=== PATIENT | female | born 1935 | race Two or more races ===

== ENCOUNTER → 2020-08-02 10:25 | Outpatient (BNV) | payer MEDICARE, MEDICAID, SELFPAY | PROVIDERS: PCP Family Medicine; Visit Provider Internal Medicine Medical Oncology | DX: C83.30 Diffuse large B-cell lymphoma, unspecified site (principal) | CPT/HCPCS: 99213; 99214 ==

== ENCOUNTER 2020-08-13 08:51 | Day surgery (SDC) | payer MEDICARE, OTHER, SELFPAY ==
--- NOTE | 2020-08-13 | IR_ITS ---
EXAMINATION: TUNNELED CATHETER REMOVAL CLINICAL INFORMATION: Port-A-Cath no longer needed COMPARISON: None TECHNIQUE/FINDINGS: Procedure and risks and benefits including bleeding and infection were discussed with the patient and informed consent was obtained. All elements of maximal sterile barrier technique followed including use of cap, mask, sterile gown, sterile gloves, a sterile full body drape and hand hygiene. Also followed skin preparation with 2% chlorhexidine for cutaneous antisepsis, and sterile ultrasound preparation with sterile gel and probe cover when applicable. The right upper chest over the port was prepped and draped in the usual sterile fashion. The skin and soft tissues were anesthetized with 1% lidocaine plain. A small incision was made. Using blunt dissection, the port and catheter were dissected from the surrounding soft tissues and removed. The skin incision was closed using 3 30 absorbable interrupted sutures followed followed by a running absorbable 4-0 subcuticular suture. Total sedation time was 19 minutes. The patient received Versed 0.5 mg and fentanyl 25 mcg. 2 saved fluoroscopic images. Fluoroscopy time 0.1 minute. IR/IR cvc remove tunnel w prt/senior bookkeeper IMPRESSION: Right internal jugular Port-A-Cath removal.
[2020-08-13 10:32] LABS: Glucose, Whole Blood 211 mg/dL (60-115)
[2020-08-13 10:47] LABS: Prothrombin Time 11.9 SEC (10.8-13.0)
[2020-08-13 10:49] LABS: Partial Thromboplastin Time 31.8 SEC (24.1-38.0)
[2020-08-13 12:20] VITALS: BP 158/59; PULSE 71; RESP 16; TEMP 36.8; O2SAT 95
--- NOTE | 2020-08-13 12:23 | HO.RADPN ---
RADIOLOGY Narrative Narrative: Right internal jugular portacath removed.
[2020-08-13] MEDS: Lidocaine HCl 1 % MPF 5 ML VIAL 10 ML SUBCUT (12:27)
[2020-08-13 12:35] VITALS: BP 156/63; PULSE 69; RESP 16; O2SAT 93
[2020-08-13 13:05] VITALS: BP 160/57; PULSE 82; RESP 16; O2SAT 97
[2020-08-13 13:20] VITALS: BP 144/59; PULSE 71; RESP 18; TEMP 36.4; O2SAT 95
== END 2020-08-13 13:49 | disposition home or self-care (01) ==
PROVIDERS: Radiology Diagnostic Radiology; PCP Family Medicine; Visit Provider Internal Medicine Medical Oncology
PROC: (CPT 36590; principal; 2020-08-13 10:30)
DX: Z45.2 Encounter for adjustment and management of vascular access device (principal); C83.30 Diffuse large B-cell lymphoma, unspecified site; E11.9 Type 2 diabetes mellitus without complications; I11.0 Hypertensive heart disease with heart failure; I50.9 Heart failure, unspecified; Z79.84 Long term (current) use of oral hypoglycemic drugs; Z79.899 Other long term (current) drug therapy
CPT/HCPCS: 36415; 36590; 82947; 85610; 85730; 99152; J2250; J3010

== ENCOUNTER 2020-08-28 10:14 | Outpatient (REF) | payer MEDICARE, OTHER, SELFPAY ==
--- NOTE | 2020-08-28 10:17 | CT_ITS ---
EXAMINATION: CT CHEST WITHOUT CONTRAST CLINICAL INFORMATION: Lymphoma. Follow-up pulmonary nodules and pleural effusion. COMPARISON: Previous chest CT scans March 2020 and April 2019 TECHNIQUE: Multidetector volumetric CT imaging of the chest was done. Axial MIP volume rendering provided. Sagittal and coronal reformatted images were obtained. This CT examination was performed using dose optimization techniques as appropriate, variously including the following: *Automated exposure control *Adjustment of mA and/or kV according to patient size (this includes techniques or standardized protocols for targeted exams where dose is matched to indication/reason for exam; i.e. extremities or head) *Use of iterative reconstruction technique DLP: 147 mGy-cm FINDINGS: LUNGS: There is a 4 mm right upper lobe nodule axial image 123 series 5. There is a 3 x 4 mm peripheral or subpleural right upper lobe nodule axial image 163 series 5. There is a 4 mm peripheral or subpleural right lower lobe nodule axial image 207 series 5. There is a 3 mm peripheral or subpleural nodule adjacent to the minor fissure axial image 233 series 5. There is a 5 x 10 mm peripheral or subpleural right lower lobe nodule axial image 384 series 5. There is a 3 mm peripheral or subpleural superior segment left lower lobe nodule axial image 239 series 5. There is a 3 mm peripheral or subpleural calcified left lower lobe nodule axial image 256 series 5. Pulmonary nodules are stable from previous exam. There is question of a 2 mm left lower lobe nodule axial image 370 series 5. This is difficult to compare with previous exam due to motion artifact but is stable from older exam from 2019.. The lungs are otherwise clear. No new pulmonary nodule is seen. MEDIASTINUM: There are small mediastinal lymph nodes that are stable. No enlarged lymph nodes are seen. The heart is upper normal in size. There is mild coronary artery calcification. There is no pericardial effusion. PLEURA: There is no pleural effusion. No pleural mass or thickening. AXILLA: No chest wall mass or enlarged axillary lymph nodes are seen. UPPER ABDOMEN: Unremarkable OSSEOUS STRUCTURES: There are degenerative changes of the spine. CT/CT chest wo con IMPRESSION: Stable pulmonary nodules, largest measuring 5 x 10 mm in the right lower lobe. Small mediastinal lymph nodes. No enlarged lymph nodes seen. No pleural effusion.
== END 2020-08-28 10:15 | disposition home or self-care (01) ==
LOC: HO.CT 10:14
PROVIDERS: Visit Provider Internal Medicine Medical Oncology
DX: C85.90 Non-Hodgkin lymphoma, unspecified, unspecified site (principal)
CPT/HCPCS: 71250

== ENCOUNTER 2020-12-31 09:08 | Outpatient (REF) | payer MEDICARE, MEDICAID, SELFPAY ==
--- NOTE | ~2020-12-31 | MM_ITS ---
EXAMINATION: MM SCREENING DIGITAL BREAST TOMOSYNTHESIS, BILATERAL CLINICAL INFORMATION: Screening. Asymptomatic. The lifetime risk of breast cancer based on the Tyrer-Cuzick Model is 1%. COMPARISON: Mammography: 11/25/2019, 12/17/2018, 08/29/2017 TECHNIQUE: Digital breast tomosynthesis is performed in both the craniocaudal and mediolateral oblique views along with computer-aided detection (CAD). Synthesized 2D images are generated from the tomosynthesis. FINDINGS: The breasts are almost entirely fatty (ACR BI-RADS breast composition Category a). There are no significant masses, abnormal calcifications, or other abnormalities. Background stromal markings are similar to prior studies. The axilla and skin contours are unremarkable. No significant changes. MM/MM tomosynthesis screening BI IMPRESSION: No mammographic evidence of malignancy. ASSESSMENT: BI-RADS 1: Negative RECOMMENDATION: Routine annual mammography screening. This patient's information was entered into a reminder system with a target due date for their next mammogram.
== END 2020-12-31 09:09 | disposition home or self-care (01) ==
LOC: HO.MAMMO 09:08
PROVIDERS: Visit Provider Internal Medicine Medical Oncology
DX: Z12.31 Encounter for screening mammogram for malignant neoplasm of breast (principal)
CPT/HCPCS: 77063; 77067

== ENCOUNTER 2021-02-21 10:27 | Outpatient (REF) | payer MEDICARE, OTHER, SELFPAY ==
--- NOTE | ~2021-02-21 | XR_ITS ---
EXAMINATION: XR SHOULDER, RIGHT CLINICAL INFORMATION: Pain right shoulder. COMPARISON: None TECHNIQUE: AP external rotation, Grashey, scapular Y, and axillary views of the right shoulder. FINDINGS: Is loss of right glenohumeral and AC joint space with no visible acute fracture dislocation. There is moderate hypertrophic changes right AC joint. The soft tissues unremarkable. XR/XR shoulder RT min 2V IMPRESSION: No acute fracture or dislocation. Degenerative disc changes collateral joint and AC joint with moderate hypertrophic spurring right AC joint.
== END 2021-02-21 10:28 | disposition home or self-care (01) ==
LOC: HO.HOSX 10:27
PROVIDERS: Visit Provider Orthopaedic Surgery
DX: M25.511 Pain in right shoulder (principal); G89.29 Other chronic pain
CPT/HCPCS: 73030; 99202

== ENCOUNTER 2021-04-02 12:54 | Outpatient (REF) | payer MEDICARE, OTHER, SELFPAY ==
--- NOTE | ~2021-04-02 | CT_ITS ---
EXAMINATION: CT ABDOMEN AND PELVIS WITHOUT CONTRAST CLINICAL INFORMATION: Lymphoma COMPARISON: Previous head CT September 2019 TECHNIQUE: Multidetector volumetric imaging was performed from the superior aspect of the liver through the pubic symphysis. Sagittal and coronal reformatted images were obtained on the technologist's workstation. This CT examination was performed using dose optimization techniques as appropriate, variously including the following: *Automated exposure control *Adjustment of mA and/or kV according to patient size (this includes techniques or standardized protocols for targeted exams where dose is matched to indication/reason for exam; i.e. extremities or head) *Use of iterative reconstruction technique DLP: 448 mGy-cm FINDINGS: LIVER, GALLBLADDER, AND BILIARY TREE: The liver is normal in size, shape, and attenuation. No focal hepatic lesion or biliary ductal dilatation is present. The gallbladder is unremarkable with no evidence of radiopaque gallstones, gallbladder wall thickening, or obvious pericholecystic inflammatory changes. PANCREAS: Unremarkable. SPLEEN: Unremarkable. ADRENAL GLANDS: Unremarkable. KIDNEYS AND URETERS: The kidneys are normal in size, shape, and attenuation. No hydronephrosis, hydroureter, or calculi seen. No perinephric stranding. BLADDER: Unremarkable. GASTROINTESTINAL TRACT: There is diverticulosis of the colon. No evidence of diverticulitis is seen The small and large bowel are otherwise unremarkable. The appendix is unremarkable. ABDOMINAL WALL: There is an umbilical hernia containing fat. LYMPH NODES: There are no enlarged lymph nodes. There is no ascites. VASCULAR: There is evidence of atherosclerotic disease. No aneurysm is seen. PELVIC VISCERA: Unremarkable. OSSEOUS STRUCTURES: There is curvature of the lumbar spine to the right and degenerative changes. There is a lucent lesion in the L2 vertebral body that is stable and did not demonstrate increased uptake on PET CT scan probably a hemangioma. CT/CT abdomen pelvis wo con IMPRESSION: Diverticulosis of the colon. Atherosclerotic disease. Otherwise unremarkable exam.
--- NOTE | ~2021-04-02 | CT_ITS ---
EXAMINATION: CT CHEST WITHOUT CONTRAST CLINICAL INFORMATION: Lymphoma. Follow-up pleural effusion and lung nodule COMPARISON: Previous chest CT scans most recent August 2020 TECHNIQUE: Multidetector volumetric CT imaging of the chest was done. Axial MIP volume rendering provided. Sagittal and coronal reformatted images were obtained. This CT examination was performed using dose optimization techniques as appropriate, variously including the following: *Automated exposure control *Adjustment of mA and/or kV according to patient size (this includes techniques or standardized protocols for targeted exams where dose is matched to indication/reason for exam; i.e. extremities or head) *Use of iterative reconstruction technique DLP: 183 mGy-cm FINDINGS: LUNGS: There are pulmonary nodules that are stable. Largest pulmonary nodule is a 5 x 10 mm peripheral or subpleural right lower lobe nodule axial image 388 series 7. No new pulmonary nodule is seen. MEDIASTINUM: There are small mediastinal lymph nodes. No enlarged lymph nodes are seen. There is evidence of atherosclerotic disease. There is mild coronary artery calcification. PLEURA: There is no pleural effusion. No pleural mass or thickening. AXILLA: No lymphadenopathy. OSSEOUS STRUCTURES: There are degenerative changes of the spine. CT/CT chest wo con IMPRESSION: Stable pulmonary nodules, largest in the right lower lobe. No pleural effusion.
[2021-04-02 14:08] LABS: MANUAL DIFF FLAG NO
[2021-04-02 14:19] LABS: Basophils Percent Auto 0.4 % (0-2); Eosinophils Absolute Auto 0.2 X10*3/uL (0.0-0.4); Eosinophils Percent Auto 2.2 % (0-4); Hematocrit 38.5 % (37-47); Hemoglobin 12.1 g/dl (12.0-16.0); Imm Gran Abs Auto 0.04 X10*3/uL (0.00-0.03); Imm Gran Pct Auto 0.5 % (0.0-0.4); Lymphocytes Absolute Auto 2.2 X10*3/uL (1.2-4.9); Lymphocytes Percent Auto 26.8 % (20-40); Mean Corpuscular HGB Conc 31.4 g/dl (31.0-35.0); Mean Corpuscular Hemoglobin 26.5 pg (27.0-33.0); Mean Corpuscular Volume 84.4 fL (80-98); Mean Platelet Volume 11.4 fL (9.4-12.3); Monocytes Absolute Auto 0.4 X10*3/uL (0.1-1.2); Monocytes Percent Auto 4.7 % (2-11); Neutrophils Absolute Auto 5.4 X10*3/uL (2.0-8.3); Neutrophils Percent Auto 65.4 % (45-73); Platelet Count 244 X10*3/uL (160-400); Red Blood Count 4.56 X10*6/uL (4.20-5.50); Red Cell Distribution Width 16.5 % (11.0-16.0); White Blood Count 8.3 X10*3/uL (4.8-10.8)
[2021-04-02 14:35] LABS: Alanine Aminotransferase 12 U/L (0-31); Alkaline Phosphatase 89 U/L (39-117); Anion Gap 16 (12-20); Aspartate Amino Transferase 11 U/L (5-31); Bilirubin Total 0.7 mg/dL (0.0-1.0); Blood Urea Nitrogen 21 mg/dL (9-16); Calcium 9.6 mg/dL (8.4-10.2); Carbon Dioxide 28 mmol/L (22-29); Chloride 101 mmol/L (96-108); Estimated Glomerular Filt Rate > 60; Glucose Random 134 mg/dL (60-115); Lactate Dehydrogenase 158 U/L (122-220); Potassium 4.1 mmol/L (3.3-5.1); Sodium 141 mmol/L (135-145); Total Protein 7.5 g/dL (6.5-8.0)
== END 2021-04-02 12:55 | disposition home or self-care (01) ==
LOC: HO.CT 12:54
PROVIDERS: PCP Family Medicine; Visit Provider Internal Medicine Medical Oncology
DX: C83.30 Diffuse large B-cell lymphoma, unspecified site (principal)
CPT/HCPCS: 36415; 71250; 74176; 80053; 83615; 85025

== ENCOUNTER 2022-01-01 13:47 | Outpatient (REF) | payer MEDICARE, SELFPAY ==
--- NOTE | ~2022-01-01 | MM_ITS ---
EXAMINATION: MM SCREENING DIGITAL BREAST TOMOSYNTHESIS, BILATERAL CLINICAL INFORMATION: Screening. Asymptomatic. The lifetime risk of breast cancer based on the Tyrer-Cuzick Model is 1%. COMPARISON: Mammography: 12/31/2020, 11/25/2019, 11/19/2018 TECHNIQUE: Digital breast tomosynthesis is performed in both the craniocaudal and mediolateral oblique views along with computer-aided detection (CAD). Synthesized 2D images are generated from the tomosynthesis. FINDINGS: The breasts are almost entirely fatty (ACR BI-RADS breast composition Category a). There are no significant masses, abnormal calcifications, or other abnormalities. The axilla and skin contours are unremarkable. MM/MM tomosynthesis screening BI IMPRESSION: No mammographic evidence of malignancy. ASSESSMENT: BI-RADS 1: Negative RECOMMENDATION: Routine annual mammography screening. This patient's information was entered into a reminder system with a target due date for their next mammogram.
== END 2022-01-01 13:48 | disposition home or self-care (01) ==
LOC: HO.MAMMO 13:47
PROVIDERS: PCP Family Medicine; Visit Provider Family Medicine
DX: Z12.31 Encounter for screening mammogram for malignant neoplasm of breast (principal)
CPT/HCPCS: 77063; 77067

== ENCOUNTER 2022-08-08 08:32 | Outpatient (REF) | payer MEDICARE, SELFPAY ==
--- NOTE | ~2022-08-08 | CT_ITS ---
EXAMINATION: CT ABDOMEN AND PELVIS WITHOUT IV CONTRAST CLINICAL INFORMATION: Diffuse large B-cell lymphoma. COMPARISON: CT chest and abdomen 04/02/2021. TECHNIQUE: 5 mm thin axial and reformatted 3 mm thin sagittal and coronal images of chest, abdomen and pelvis were obtained without IV contrast. DLP: 864 mGy-cm FINDINGS: CHEST: Lungs: There are bilateral pulmonary nodules the largest pulmonary nodule pleural-based right lower lobe measuring 1 cm on axial image 36/7. A second larger nodule left upper lobe measures 4 mm on axial image 171/8, also unchanged. No new nodules are visualized. No acute consolidation, mass or ground-glass density. Mediastinum: The heart size and the great vessels are normal caliber. There is no pericardial effusion. No abnormal lymph node seen. There is mild coronary artery calcifications present. The central trachea and the bronchi are widely patent. Thyroid lobes are symmetrical and normal. Pleura: There is no pleural effusion, thickening or calcification. Axilla: Unremarkable. The chest wall is unremarkable. Osseous structures: There is no aggressive lytic or sclerotic process. There is mild vacuum disc phenomena in mid and lower dorsal spine with spondylosis. ABDOMEN AND PELVIS: Liver, gallbladder and biliary tree: The liver is normal size, shape and contour. No focal lesions or intrahepatic ductal dilatation seen. The gallbladder is minimally distended and appears unremarkable. Spleen: Unremarkable. Pancreas: Unremarkable. Bilateral adrenal glands: Unremarkable. Kidneys and ureters: Both kidneys are normal size, shape and contour. There is a 3 mm nonobstructive radiopaque calculus lower pole right kidney. There is no hydronephrosis. There is no bilateral perinephric stranding. Lymphovascular structures: There is atherosclerotic calcification of abdominal aorta without aneurysmal dilatation. No abnormal size retroperitoneal or intraperitoneal lymph node seen. Abdominal wall: Unremarkable. GI tract: There is scattered colonic diverticulosis without mural thickening or diverticulitis. Visualized small bowel loops, ileocecal junction and appendix are normal caliber. No free air or free fluid seen. Pelvis: The uterus is anteverted with scattered calcifications. Urinary bladder: There is calcification along the posterior thickened bladder wall, similar to previous study. Osseous structures: There are degenerative disc changes L1-L2 and L5-S1 disc levels. CT/CT abdomen pelvis wo IV con IMPRESSION: Stable multiple pulmonary nodules. No abnormal mediastinal or axillary lymphadenopathy. Diffuse colonic diverticulosis without diverticulitis. Mild constipation. Degenerative disc changes L5-S1 disc level.
== END 2022-08-08 08:33 | disposition home or self-care (01) ==
LOC: HO.CT 08:32
PROVIDERS: PCP Registered Nurse; Visit Provider Internal Medicine Medical Oncology
DX: C83.30 Diffuse large B-cell lymphoma, unspecified site (principal)
CPT/HCPCS: 71250; 74176

== ENCOUNTER → 2022-12-17 11:28 | Outpatient (BNVA) | payer MEDICARE, MEDICAID, OTHER, SELFPAY | PROVIDERS: PCP Registered Nurse; Visit Provider Internal Medicine | DX: R19.5 Other fecal abnormalities (principal) | CPT/HCPCS: 99212 ==

== ENCOUNTER 2023-01-07 13:13 | Outpatient (REF) | payer MEDICARE, MEDICAID, SELFPAY ==
--- NOTE | ~2023-01-07 | MM_ITS ---
EXAMINATION: MM SCREENING DIGITAL BREAST TOMOSYNTHESIS, BILATERAL CLINICAL INFORMATION: Screening. Asymptomatic. Prior history diffuse B-cell lymphoma. COMPARISON: Mammography: 01/01/2022, 12/31/2020 TECHNIQUE: Digital breast tomosynthesis is performed in both the craniocaudal and mediolateral oblique views along with computer-aided detection (CAD). Synthesized 2D images are generated from the tomosynthesis. FINDINGS: The breasts are almost entirely fatty (ACR BI-RADS breast composition Category a). Background stromal markings are normal. No architectural abnormality or developing density. There are no significant masses, abnormal calcifications, or other abnormalities. The axilla are unremarkable. The skin contours are smooth. No skin thickening or coarsening Tim's ligaments. No significant changes. MM/MM tomosynthesis screening BI IMPRESSION: No mammographic evidence of malignancy. ASSESSMENT: BI-RADS 1: Negative RECOMMENDATION: Routine annual mammography screening. This patient's information was entered into a reminder system with a target due date for their next mammogram.
== END 2023-01-07 13:14 | disposition home or self-care (01) ==
LOC: HO.MAMMO 13:13
PROVIDERS: PCP Family Medicine; Visit Provider Family Medicine
DX: Z12.31 Encounter for screening mammogram for malignant neoplasm of breast (principal)
CPT/HCPCS: 77063; 77067

== ENCOUNTER 2023-02-05 09:38 | Day surgery (SDC) | payer MEDICARE, MEDICAID, SELFPAY ==
[2023-02-03 11:07] VITALS: BMI 37.0
--- NOTE | 2023-02-04 12:31 | P.CONAN_ITS ---
Documented by User: Carolyn Whitley NP 02/04/23 14:44 HPI - Anesthesia Eval Consult details Narrative: 87yo F for Colonoscopy Follows Dr Read for cardiology - CHF, NICMP, HTN, BBB. Last seen 12/23/22. Euvolemic/stable, no CP, palps, PND, orthopnea, or syncope. *Mutiple Med Allergies* PMFSH Active Problems Active Problems: All Active Problems (Updated 01/29/23 @ 15:40 by Kenrick Sheldon MD) Diffuse large B cell lymphoma (Acute) Positive fecal immunochemical test (Acute) Chronic periscapular pain on right side (Acute) Past Medical History Medical History Carpal tunnel syndrome on both sides Cataract Chronic periscapular pain on right side Congestive heart failure History of DVT (deep vein thrombosis) History of pleural effusion HTN (hypertension) Tendonitis Type 2 diabetes mellitus Family History Family History Daughter Uterine cancer Family/Other HTN (hypertension) Surgical History Surgical History (Updated 02/03/23 @ 11:03 by Ami Willis RN) H/O varicose vein stripping History of delivery History of removal of Port-a-Cath Hx of colonoscopy Social History Social History Household Members: Sp[facility] Are you a primary neonatal intensive care nurse to a significant other at home: No Do you presently have visiting nurse or other home services: No Alcohol intake: never Patient Tobacco Use Status: Never used Tobacco Are you DNR?: No Advance Directives: No Advance Directives Information Provided: Yes Nutrition Risks: No Nutritional Risk service: No Current occupational status: retired Meds Allergies Allergy/AdvReac Type Severity Reaction Status Date / Time Iodinated Contrast Media Allergy Severe PA Unverified 01/29/23 15:45 [IV CONTRAST] amlodipine [Amlodipine] Allergy Intermediate FACIAL Unverified 02/03/23 10:54 SWELLING levofloxacin [From LEVAQUIN] Allergy Intermediate INABILITY Unverified 02/03/23 10:54 TO MOVE LEGS, SEVERE PAIN TO LEGS/ANKLES atenolol [From Tenormin] Allergy Unknown CANNOT Unverified 01/29/23 15:45 TOLERATE atorvastatin [From Lipitor] Allergy Unknown cannot Verified 02/03/23 10:53 tolerate clonidine Allergy Unknown Unknown Verified 02/03/23 10:55 glimepiride [From Amaryl] Allergy Unknown CANNOT Unverified 01/29/23 15:45 TOLERTATE indapamide [From Lozol] Allergy Unknown CANNOT Unverified 01/29/23 15:45 TOLERATE lisinopril [Lisinopril] Allergy Unknown CANNOT Unverified 01/29/23 15:45 TOLERATE meloxicam [From Mobic] Allergy Unknown Unknown Verified 02/03/23 10:53 metformin [Metformin] Allergy Unknown CANNOT Unverified 01/29/23 15:45 TOLERATE naproxen [From Naprosyn] Allergy Unknown CANNOT Unverified 01/29/23 15:45 TOLERATE omeprazole [From Prilosec] Allergy Unknown CANNOT Unverified 01/29/23 15:45 TOLERATE pravastatin [Pravastatin] Allergy Unknown CANNOT Unverified 01/29/23 15:45 TOLERATE rosiglitazone [From Avandia] Allergy Unknown Unknown Verified 02/03/23 10:55 verapamil [Verapamil] Allergy Unknown CANNOT Unverified 01/29/23 15:45 TOLERATE rosuvastatin [From Crestor] AdvReac Unknown cannot Verified 02/03/23 10:55 tolerate Home Medications Medication Instructions Recorded Confirmed Last Taken Type acetaminophen 500 mg tablet 1 tab PO Q8H PRN fever 08/02/20 02/03/23 Unknown History aspirin 81 mg tablet,delayed 81 mg PO DAILY 08/02/20 02/03/23 Unknown History release chlorthalidone 25 mg tablet 1 tab PO QAM 08/02/20 02/03/23 Unknown History furosemide 20 mg tablet 20 mg PO DAILY 08/02/20 02/03/23 Unknown History glipizide 10 mg tablet 1 tab PO DAILY 08/02/20 02/03/23 Unknown History hydralazine 50 mg tablet 50 mg PO QID 08/02/20 02/03/23 Unknown History loratadine 10 mg tablet 10 mg PO DAILY PRN Itching 08/02/20 02/03/23 Unknown History metoprolol succinate 50 mg 1 tab PO BEDTIME 08/02/20 02/03/23 Unknown History tablet,extended release 24 hr nifedipine 30 mg tablet,extended 1 tab PO DAILY 08/02/20 02/03/23 Unknown History release 24 hr blood sugar diagnostic #10 ea 02/21/21 01/29/23 Unknown History lancets 26 gauge #100 ea 02/21/21 01/29/23 Unknown History metformin 500 mg tablet 500 mg PO DAILY 02/21/21 02/03/23 Unknown History triamcinolone acetonide 55 mcg 2 spray intranasal DAILY 02/21/21 01/29/23 Unknown History nasal spray aerosol metoprolol succinate 25 mg 10 mg PO DAILY 12/17/22 01/29/23 Unknown History tablet,extended release 24 hr Exam Exam Date and Time: February 04, 2023 1231 Height,Weight and Vital Signs: Height 4 ft 8 in Weight 74.843 kg Pertinent Lab Results Pertinent Lab Results: Laboratory Tests 01/29/23 01/29/23 15:36 15:36 WBC 8.0 Hgb 12.4 Hct 38.1 Plt Count 207 Sodium 139 Potassium 3.9 Chloride 104 Carbon Dioxide 24 BUN 26 H Creatinine 1.27 Narrative Narrative: ECHO 11/2022 Suboptimal views d/t patient body habitus Endocardium not well visualized therefore wall motion abn cannot be r/o LV size is normal Borderline LVH Overall HV sys function is low-normal with an EF between 50-55% Grade 1 DD with impaired relaxation filling pattern. LA pressure is normal LA size is normal RV systolic function is normal Trace AR Mild MR Mild pulmo htn Contrast recommended to better visualize LV Assessment and Plan Assessment Anesthesia Assessment: Chart Reviewed Documented by User: Zeina Silva MD 02/05/23 10:43 [facility] Past Medical History Medical History Carpal tunnel syndrome on both sides Cataract Chronic periscapular pain on right side Congestive heart failure History of DVT (deep vein thrombosis) History of pleural effusion HTN (hypertension) Tendonitis Type 2 diabetes mellitus Family History Family History Daughter Uterine cancer Family/Other HTN (hypertension) Family history of problems with anesthesia: No Surgical History Surgical History (Updated 02/03/23 @ 11:03 by Ami Willis RN) H/O varicose vein stripping History of delivery History of removal of Port-a-Cath Hx of colonoscopy History of Problems with Anesthesia: No Social History Social History Household Members: Spouse Housing: Condominium Are you a primary neonatal intensive care nurse to a significant other at home: No Do you presently have visiting nurse or other home services: No Alcohol intake: never Patient Tobacco Use Status: Never used Tobacco Are you DNR?: No Advance Directives: No Advance Directives Information Provided: Yes Nutrition Risks: No Nutritional Risk service: No Current occupational status: retired Meds Allergies Allergy/AdvReac Type Severity Reaction Status Date / Time Iodinated Contrast Media Allergy Severe PA Unverified 01/29/23 15:45 [IV CONTRAST] amlodipine [Amlodipine] Allergy Intermediate FACIAL Unverified 02/03/23 10:54 SWELLING levofloxacin [From LEVAQUIN] Allergy Intermediate INABILITY Unverified 02/03/23 10:54 TO MOVE LEGS, SEVERE PAIN TO LEGS/ANKLES atenolol [From Tenormin] Allergy Unknown CANNOT Unverified 01/29/23 15:45 TOLERATE atorvastatin [From Lipitor] Allergy Unknown cannot Verified 02/03/23 10:53 tolerate clonidine Allergy Unknown Unknown Verified 02/03/23 10:55 glimepiride [From Amaryl] Allergy Unknown CANNOT Unverified 01/29/23 15:45 TOLERTATE indapamide [From Lozol] Allergy Unknown CANNOT Unverified 01/29/23 15:45 TOLERATE lisinopril [Lisinopril] Allergy Unknown CANNOT Unverified 01/29/23 15:45 TOLERATE meloxicam [From Mobic] Allergy Unknown Unknown Verified 02/03/23 10:53 metformin [Metformin] Allergy Unknown CANNOT Unverified 01/29/23 15:45 TOLERATE naproxen [From Naprosyn] Allergy Unknown CANNOT Unverified 01/29/23 15:45 TOLERATE omeprazole [From Prilosec] Allergy Unknown CANNOT Unverified 01/29/23 15:45 TOLERATE pravastatin [Pravastatin] Allergy Unknown CANNOT Unverified 01/29/23 15:45 TOLERATE rosiglitazone [From Avandia] Allergy Unknown Unknown Verified 02/03/23 10:55 verapamil [Verapamil] Allergy Unknown CANNOT Unverified 01/29/23 15:45 TOLERATE rosuvastatin [From Crestor] AdvReac Unknown cannot Verified 02/03/23 10:55 tolerate Home Medications Medication Instructions Recorded Confirmed Last Taken Type acetaminophen 500 mg tablet 1 tab PO Q8H PRN fever 08/02/20 02/03/23 Unknown History aspirin 81 mg tablet,delayed 81 mg PO DAILY 08/02/20 02/03/23 Unknown History release chlorthalidone 25 mg tablet 1 tab PO QAM 08/02/20 02/03/23 Unknown History furosemide 20 mg tablet 20 mg PO DAILY 08/02/20 02/03/23 Unknown History glipizide 10 mg tablet 1 tab PO DAILY 08/02/20 02/03/23 Unknown History hydralazine 50 mg tablet 50 mg PO QID 08/02/20 02/03/23 Unknown History loratadine 10 mg tablet 10 mg PO DAILY PRN Itching 08/02/20 02/03/23 Unknown History metoprolol succinate 50 mg 1 tab PO BEDTIME 08/02/20 02/03/23 Unknown History tablet,extended release 24 hr nifedipine 30 mg tablet,extended 1 tab PO DAILY 08/02/20 02/03/23 Unknown Histo ry release 24 hr blood sugar diagnostic #10 ea 02/21/21 01/29/23 Unknown History lancets 26 gauge #100 ea 02/21/21 01/29/23 Unknown History metformin 500 mg tablet 500 mg PO DAILY 02/21/21 02/03/23 Unknown History triamcinolone acetonide 55 mcg 2 spray intranasal DAILY 02/21/21 01/29/23 Unknown History nasal spray aerosol metoprolol succinate 25 mg 10 mg PO DAILY 12/17/22 01/29/23 Unknown History tablet,extended release 24 hr Exam Airway Mallampati Class: II TM Dist: >3cm Neck ROM: Full Loose/Missing/Broken Teeth: No Heart: rr Lungs: cta Assessment and Plan Assessment Anesthesia Assessment: Anesthesia Plan Discussed Final Anesthetic Review Family History of Problems with Anesthesia: No History of Problems with Anesthesia: No NPO: Yes ASA Class: II Final Preanesthetic Review: No Changes in Pt Med Stat, Meds/Allgs Chart Reviewed, Consent Obtained/Reviewed and Anes Risks/Benef Reviewed Patient Risk: Low Procedure Risk: Low Anesthetic Plan Anesthetic Plan: MAC: Disposition: Standard PACU
[2023-02-05 10:31] VITALS: BP 166/59; PULSE 94; RESP 18; TEMP 36.6; O2SAT 97
--- NOTE | 2023-02-05 10:35 | PC.NURSE ---
Dr. Silva aware of bp results and poc.
[2023-02-05] MEDS: Lactated Ringers 1,000 ML 50 ML IVCONT (10:36)
[2023-02-05 10:41] LABS: Glucose, Whole Blood 211 mg/dL (60-115)
--- NOTE | 2023-02-05 10:53 | PC.NURSE ---
Iv inserted by dwaine kline rn
--- NOTE | 2023-02-05 11:37 | MHC.SHP ---
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 side Congestive heart failure History of DVT (deep vein thrombosis) History of pleural effusion HTN (hypertension) Tendonitis Type 2 diabetes mellitus) History of Previous Operations: Relevant previous surgery/procedure and date(s) (H/O varicose vein stripping History of delivery Hx of colonoscopy) Allergies: Allergies Allergy/AdvReac Type Severity Reaction Status Date / Time Iodinated Contrast Media Allergy Severe [place] Unverified 01/29/23 15:45 [IV CONTRAST] amlodipine [Amlodipine] Allergy Intermediate FACIAL Unverified 02/03/23 10:54 SWELLING levofloxacin [From LEVAQUIN] Allergy Intermediate INABILITY Unverified 02/03/23 10:54 TO MOVE LEGS, SEVERE PAIN TO LEGS/ANKLES atenolol [From Tenormin] Allergy Unknown CANNOT Unverified 01/29/23 15:45 TOLERATE atorvastatin [From Lipitor] Allergy Unknown cannot Verified 02/03/23 10:53 tolerate clonidine Allergy Unknown Unknown Verified 02/03/23 10:55 glimepiride [From Amaryl] Allergy Unknown CANNOT Unverified 01/29/23 15:45 TOLERTATE indapamide [From Lozol] Allergy Unknown CANNOT Unverified 01/29/23 15:45 TOLERATE lisinopril [Lisinopril] Allergy Unknown CANNOT Unverified 01/29/23 15:45 TOLERATE meloxicam [From Mobic] Allergy Unknown Unknown Verified 02/03/23 10:53 metformin [Metformin] Allergy Unknown CANNOT Unverified 01/29/23 15:45 TOLERATE naproxen [From Naprosyn] Allergy Unknown CANNOT Unverified 01/29/23 15:45 TOLERATE omeprazole [From Prilosec] Allergy Unknown CANNOT Unverified 01/29/23 15:45 TOLERATE pravastatin [Pravastatin] Allergy Unknown CANNOT Unverified 01/29/23 15:45 TOLERATE rosiglitazone [From Avandia] Allergy Unknown Unknown Verified 02/03/23 10:55 verapamil [Verapamil] Allergy Unknown CANNOT Unverified 01/29/23 15:45 TOLERATE rosuvastatin [From Crestor] AdvReac Unknown cannot Verified 02/03/23 10:55 tolerate Review of Systems Sugical H&P ROS: Negative: Constitution, Cardiovascular, Respiratory and Gastrointestinal Exam Surgical H&P Exam: Normal: Heart, Normal: Lungs, Normal: Extremities and Normal: Abdomen Plan Diagnosis/Plan: Unchanged I have reviewed the history and physical and performed a pertinent physical examination on my patient. No changes have occurred unless specified. Time Spent With Patient Time: Total time managing care of this patient today ____ minutes.
--- NOTE | 2023-02-05 11:39 | W.PM.OPN ---
Operative Note Operative Note Date of Service: 02/05/23 Narrative: COLONOSCOPY TILL CECUM WITH SNARE POLYPECTOMY, SUBMUCOSAL INJECTION, HEMOCLIP PLACEMENT Pre-op diagnosis: COLON CANCER SCREENING, POSITIVE FIT TEST Post-op diagnosis:? COLON POLYPS, DIVERTICULOSIS, HEMORRHOIDS Endoscopist:? Ifeanyi Becerra MD Anesthesia:?MAC Consent: Indications for the procedure and potential complications of bleeding, perforation, reaction to medications and missed diagnosis were discussed with the patient with the help of a [place] language therapist and informed consent was obtained. Instrument: Olympus PCF H 190 L variable stiffness pediatric colonoscope Monitoring: Vital signs and clinical assessment, intermittent blood pressure monitoring, continuous EKG monitoring, Pulse oximetry and Carbon Dioxide monitoring were done throughout the procedure. Please see anesthesia flowsheet. Colon withdrawl time was 35 minutes. Procedure: The patient was placed in the left lateral decubitis position and pre-procedure medications were administered. After a digital rectal examination of the ano-rectum, the video colonoscope was inserted into the rectum and advanced through the colon to the cecum. The colonoscope was slowly withdrawn in a retrograde panoramic fashion and the colon mucosa was carefully examined including a retroflexed view of the rectum. Findings and interventions are described below. Procedure Difficulty: Without difficulty Findings: Terminal Ileum: Not evaluated Cecum: A 2.5 cms flat polyp - raised with 5 cc of Eleview and removed with hot snare. Polypectomy site was closed with 1 hemoclip. Ascending Colon: Two 1.8 to 2 cms sessile polyp in the proximal ascending colon - removed with a hot snare. Transverse Colon: Three 1.5 to 1.8 cms sessile polyps - removed with a hot snare. Two 10 -12 mm sessile polyps - removed with a hot snare. Descending Colon: A 10-12 mm sessile polyp - removed with a hot snare. Moderate diverticulosis Sigmoid Colon: Moderate diverticulosis Rectum: Normal Ano-rectum: Moderate internal hemorrhoids Colon preparation: Good poor Impression and Post Procedure Diagnosis: Colonoscopy Findings: Eight medium sized and one large polyps removed Moderate diverticulosis seen in the left colon Moderate hemorrhoids on retroflexed exam. Plan: Await pathology results Patient has an appointment on 02/18/23 in the [facility] with Dr Noyola. Repeat Colonoscopy interval based on path results - in 1 year if polyps are adenomatous and 5 years if polys are hyperplastic Above findings were reviewed with the patient with the help of a [place] language therapist and colon polyps and diverticulosis handouts were given in the discharge area
[2023-02-05 12:32] VITALS: BP 95/48; PULSE 71; RESP 14; TEMP 36.2; O2SAT 95
[2023-02-05 12:47] VITALS: BP 142/63; PULSE 73; RESP 16; TEMP 36.2; O2SAT 96
== END 2023-02-05 13:27 | disposition home or self-care (01) ==
PROVIDERS: PCP Family Medicine; Visit Provider Internal Medicine Gastroenterology
PROC: 0DJD8ZZ Inspection of Lower Intestinal Tract, Via Natural or Artificial Opening Endoscopic (ICD-10-PCS; CPT 45378; principal; 2023-02-05 11:30)
DX: R19.5 Other fecal abnormalities (principal); D12.0 Benign neoplasm of cecum; D12.2 Benign neoplasm of ascending colon; D12.3 Benign neoplasm of transverse colon; D12.4 Benign neoplasm of descending colon; K57.30 Diverticulosis of large intestine without perforation or abscess without bleeding; K64.8 Other hemorrhoids; I50.9 Heart failure, unspecified; I11.0 Hypertensive heart disease with heart failure; E11.9 Type 2 diabetes mellitus without complications; Z86.718 Personal history of other venous thrombosis and embolism; Z79.82 Long term (current) use of aspirin; Z79.84 Long term (current) use of oral hypoglycemic drugs; Z79.899 Other long term (current) drug therapy; Z88.1 Allergy status to other antibiotic agents; Z88.8 Allergy status to other drugs, medicaments and biological substances; Z91.041 Radiographic dye allergy status
CPT/HCPCS: 45385; 45381; 82947; 88305

== ENCOUNTER → 2023-02-18 13:55 | Outpatient (BNVA) | payer MEDICARE, MEDICAID, SELFPAY | PROVIDERS: PCP Family Medicine; Visit Provider Internal Medicine | DX: R19.5 Other fecal abnormalities (principal); Z86.010 Personal history of colon polyps | CPT/HCPCS: 99212 ==

== ENCOUNTER 2023-09-03 14:29 | Outpatient (REF) | payer MEDICARE, OTHER, SELFPAY ==
--- NOTE | ~2023-09-03 | CT_ITS ---
EXAMINATION: CT CHEST WITHOUT CONTRAST CLINICAL INFORMATION: Follow-up lung nodules. Diffuse large B-cell lymphoma. COMPARISON: None available. TECHNIQUE: Multidetector volumetric CT imaging of the chest was done. Axial MIP volume rendering provided. Sagittal and coronal reformatted images were obtained. This CT examination was performed using dose optimization techniques as appropriate, variously including the following: *Automated exposure control *Adjustment of mA and/or kV according to patient size (this includes techniques or standardized protocols for targeted exams where dose is matched to indication/reason for exam; i.e. extremities or head) *Use of iterative reconstruction technique DLP: 628.45 mGy-cm FINDINGS: LUNGS: Interval increase in Mixed groundglass and streaky densities are seen in the right lower lobe posterior basal segment. Sagittal reoriented bandlike alveolar density is seen in medial posterior right lower lobe posterior basal segment, series 7 image #389, series 6 image #62. -Nodule #1 (Series 7, image 257): 4.6 mm solid nodule, anterior lateral border of left upper lobe anterior segment, previously 4.4 mm. -Nodule #2 (Series 7, image 213): 2.5 mm solid nodule, posterior pleural border of right upper lobe anterior segment, previously 2 mm. -Nodule #3 (Series 7, image 340): 4.5 mm solid nodule, anterior border of right lower lobe medial basal segment attached to the right major fissure, previously 4.7 mm. -Nodule #4 (Series 7, image 406): 6.5 mm solid nodule, posterior pleural border of right lower lobe posterior basal segment, previously 9.5 mm. PLEURA: No pleural effusion or pneumothorax is seen. PERICARDIUM: No pericardial effusion is seen. MEDIASTINUM AND DAKSHA: Inadequate evaluation of the mediastinal and hilar lymph nodes due to absence of IV contrast filling the surrounding blood vessels. TRACHEOBRONCHIAL TREE: Trachea and bilateral mainstem bronchi are patent. THORACIC AORTA: The thoracic aorta is normal in size with extensive atherosclerotic calcifications. CORONARY ARTERY CALCIFICATIONS: Moderate PULMONARY ARTERIES: The main pulmonary arteries appear to be normal in size. CHEST WALL AND LOWER NECK: Unchanged Left level 1 axillary lymph node is seen measuring 0.7 cm in short axis, series 3 image #19, series 5 image #32. Unchanged Precarinal lymph node measuring 0.7 cm in short axis is also seen, series 3 image #23. The subcutaneous and muscular chest wall are intact with no focal lesion. No abnormal mass lesion could be seen in the visualized lower neck. BONES: No fracture or dislocation. No focal bone lesion diagnostic of metastatic disease could be seen in the thorax. VISUALIZED UPPER ABDOMEN: Bilateral adrenal glands are not enlarged. CT/CT chest wo IV con IMPRESSION: 1. Interval increase in mixed groundglass and streaky densities are seen in the right lower lobe posterior basal segment. Sagittal reoriented bandlike alveolar density is seen in the medial posterior right lower lobe posterior basal segment. 2. Stable bilateral upper lobe and right lower lobe nodules. Fleischner guidelines were followed. Fleischner guidelines were followed.
--- NOTE | ~2023-09-03 | CT_ITS ---
EXAMINATION: CT ABDOMEN AND PELVIS WITHOUT CONTRAST CLINICAL INFORMATION: B-cell lymphoma COMPARISON: CT scan of abdomen and pelvis on 08/08/2022, FDG PET scan on 07/28/2019 at [facility], 10/20/2019 at [facility] TECHNIQUE: Multidetector volumetric imaging was performed from the superior aspect of the liver through the pubic symphysis. Sagittal and coronal reformatted images were obtained on the technologist's workstation. This CT examination was performed using dose optimization techniques as appropriate, variously including the following: *Automated exposure control *Adjustment of mA and/or kV according to patient size (this includes techniques or standardized protocols for targeted exams where dose is matched to indication/reason for exam; i.e. extremities or head) *Use of iterative reconstruction technique DLP: 468.2 mGy-cm FINDINGS: CT ABDOMEN LUNG BASES: Evaluation is limited by respiratory motion blurring. Bilateral lung bases branching linear and streaky alveolar densities are present. LIVER: Liver appears to be grossly normal on noncontrast enhanced images. GALLBLADDER AND BILIARY TREE: Gallbladder appears unremarkable without calcified stones. Common bile duct is not dilated. SPLEEN: The spleen is normal in size without focal lesion on noncontrast enhanced images. PANCREAS: The pancreas appears unremarkable on noncontrast enhanced images. ADRENAL GLANDS: Adrenal glands are normal in size without focal lesion bilaterally. KIDNEYS: The visualized bilateral kidneys are normal in size without stones. The previously reported right lower pole nonobstructive calculus has passed. No caliectasis or dilated pelvis is seen. No dilated ureters are found. BOWELS: There is normal filling of large and small bowel loops with oral contrast all the way down to the descending colon. Multiple diverticula are seen in the descending colon without inflammatory changes. RETROPERITONEUM: No abnormally enlarged retroperitoneal lymph nodes, mass or hematoma could be seen. BLOOD VESSELS: Abdominal aorta is normal in size with circumferential atherosclerotic calcifications. ABDOMINAL WALL: Medium-sized umbilical hernia containing mesenteric fat is seen. PERITONEUM: There is no ascites. There were no abdominal peritoneal inflammatory changes seen. No free peritoneal air was seen. BONES: There is mild L1-L2 dextroscoliosis. Advanced L5-S1 degenerative lumbar disc disease is seen. No fracture or dislocation. A persistent radiolucent lesion is seen in left lateral L2 vertebral body measuring 1.2 cm in AP diameter, 1.0 cm in width, 1.1 cm in vertical height, showing no abnormal glucose uptake, stable since 05/24/2019. No focal bone lesion diagnostic of metastatic disease could be seen in the lumbar region. CT PELVIS URINARY BLADDER: The visualized urinary bladder is filled with urine. Persistent Multiple gravitating intraluminal calculi are found. No abnormally dilated distal ureters are seen. BOWELS: There is no abnormal dilatation of the large and small bowel loops. Normal appendix is seen posterior to the cecum. Multiple diverticula are seen in the descending and sigmoid colon without inflammatory changes. GENITAL ORGANS: No adnexal mass lesion could be seen. The uterus is unremarkable. LYMPH NODES: No abnormally enlarged iliac or inguinal lymph nodes are seen. PERITONEUM: No inflammatory changes, ascites or free peritoneal air are found in the pelvis. BONES: No fracture or dislocation. No focal bone lesion diagnostic of metastatic disease could be seen in the pelvis. CT/CT abdomen pelvis wo IV con IMPRESSION: 1. No evidence of renal stone or hydronephrosis. Previously reported right lower pole renal calculus has passed. No hydronephrosis or hydroureter. 2. Unchanged Multiple gravitating calculi in the urinary bladder. 3. Persistent descending and sigmoid Colonic diverticulosis without diverticulitis. 4. Unchanged Medium-sized umbilical hernia containing mesenteric fat.
[2023-09-03] MEDS: Barium Sulfate Oral (Vanilla) 450 ML ORAL.SUSP 900 ML PO (17:17)
== END 2023-09-03 14:30 | disposition home or self-care (01) ==
LOC: HO.CT 14:29
PROVIDERS: Visit Provider Internal Medicine Medical Oncology
DX: C83.30 Diffuse large B-cell lymphoma, unspecified site (principal); Z87.09 Personal history of other diseases of the respiratory system
CPT/HCPCS: 71250; 74176

== ENCOUNTER 2024-01-05 11:50 | Outpatient (REF) | payer MEDICARE, OTHER, SELFPAY ==
[2024-01-05 13:19] LABS: MANUAL DIFF FLAG NO
[2024-01-05 13:38] LABS: Basophils Percent Auto 0.4 % (0-2); Eosinophils Absolute Auto 0.2 X10*3/uL (0.0-0.4); Eosinophils Percent Auto 2.3 % (0-4); Hemoglobin 12.5 g/dl (12.0-16.0); Imm Gran Abs Auto 0.03 X10*3/uL (0.00-0.03); Imm Gran Pct Auto 0.4 % (0.0-0.4); Lymphocytes Absolute Auto 2.3 X10*3/uL (1.2-4.9); Lymphocytes Percent Auto 27.7 % (20-40); Mean Corpuscular HGB Conc 32.1 g/dl (31.0-35.0); Mean Corpuscular Hemoglobin 27.3 pg (27.0-33.0); Mean Corpuscular Volume 85.2 fL (80.0-98.0); Mean Platelet Volume 12.3 fL (9.4-12.3); Monocytes Absolute Auto 0.4 X10*3/uL (0.1-1.2); Monocytes Percent Auto 4.7 % (2-11); Neutrophils Absolute Auto 5.3 x10*3/uL (2.0-8.3); Neutrophils Percent Auto 64.5 % (45-73); Platelet Count 216 X10*3/uL (160-400); Red Blood Count 4.58 X10*6/uL (4.20-5.50); Red Cell Distribution Width 14.6 % (11.0-16.0); White Blood Count 8.2 X10*3/uL (4.8-10.8)
[2024-01-05 13:50] LABS: Estimated Average Glucose 186 mg/dL; Hemoglobin A1c % 8.1 % (<6.0)
[2024-01-05 14:01] LABS: Alanine Aminotransferase 12 U/L (0-31); Albumin Level 3.5 g/dL (3.5-5.0); Alkaline Phosphatase 88 U/L (39-117); Anion Gap 12 (12-20); Aspartate Amino Transferase 15 U/L (5-31); Bilirubin Direct 0.1 mg/dL (0.0-0.5); Bilirubin Total 0.4 mg/dL (0.0-1.0); Blood Urea Nitrogen 20 mg/dL (9-16); Calcium 9.2 mg/dL (8.4-10.2); Carbon Dioxide 28 mmol/L (22-29); Chloride 104 mmol/L (96-108); Cholesterol 186 mg/dL (<200); Estimated Glomerular Filt Rate > 60; Glucose Random 197 mg/dL (60-115); HDL Cholesterol 46 mg/dL (>40); LDL Cholesterol Calculated 113 mg/dL (<100); Potassium 3.8 mmol/L (3.3-5.1); Sodium 140 mmol/L (135-145); Total Protein 7.7 g/dL (6.5-8.0); Triglycerides 135 mg/dL (<150)
[2024-01-05 14:16] LABS: Free T4 (Free Thyroxine) 1.04 ng/dL (0.71-1.85); Thyroid Stimulating Hormone 1.05 uIU/mL (0.32-4.0); Vitamin D 25-OH Total 12.9 ng/mL (>30)
== END 2024-01-05 11:51 | disposition home or self-care (01) ==
LOC: HO.HHCL 11:50
PROVIDERS: Visit Provider Family Medicine
DX: E11.22 Type 2 diabetes mellitus with diabetic chronic kidney disease (principal); N18.30 Chronic kidney disease, stage 3 unspecified
CPT/HCPCS: 36415; 80048; 80061; 80076; 82306; 83036; 84439; 84443; 85025